=== PATIENT | male | born 1970 | race Caucasian/White ===

== ENCOUNTER 2017-08-12 18:42 | Inpatient (IN) | payer BC ==
[~2017-08-12] VITALS: Ht 188 cm; Wt 96.2 kg
[~2017-08-12 18:42] MED LIST: NAPROSYN500 MG PO; NORCO 7.5/321 TABLET PO
[2017-08-12 19:34] LABS: CHLORIDE 100 mEq/L (99-109); POTASSIUM 4.1 mEq/L (3.7-5.4); SODIUM 135 mEq/L (136-147)
[2017-08-12 19:36] LABS: GLUCOSE 132 mg/dL (70-99)
[2017-08-12 19:37] LABS: ANION GAP 11 MEQ/L (2-14)
[2017-08-12 19:38] LABS: TOTAL BILIRUBIN 0.7 mg/dL (0.0-1.0)
[2017-08-12 19:39] LABS: ALKALINE PHOSPHATASE 107 IU/L (3-129)
[2017-08-12 19:40] LABS: GFR ESTIMATE (CALCULATED) > 59 mL/min/
[2017-08-12 19:41] LABS: UREA NITROGEN (BUN) 13 mg/dL (9-23)
[2017-08-12 19:43] LABS: LIPASE 454 U/L (1.0-51.0)
[2017-08-12] MEDS ORDERED: GLIMEPIRIDE4 MG PO (21:57)
[2017-08-12] MEDS ORDERED: ATORVASTATIN CA20 MG PO (21:58)
[2017-08-12] MEDS ORDERED: LO-DOSE ASPIRIN81 M2 PO (21:58)
[2017-08-12] MEDS ORDERED: METFORMIN HCL500 M1 PO (21:58)
[2017-08-12 22:51] LABS: BASOPHIL COUNT 0.1 K/uL (0-0.1); EOSINOPHIL (%) 2.6 % (0-5); EOSINOPHIL COUNT 0.4 K/uL (0-0.3); HEMATOCRIT 48.5 % (38.0-50.0); IMMATURE GRANULOCYTE (%) 0.6 % (0.0-0.7); IMMATURE GRANULOCYTE COUNT 0.1 K/uL; INSTRUMENT ABS NEUTROPHIL CT 9.7 K/uL; LYMPHOCYTE COUNT 3.8 K/uL (1.0-2.8); MCH 30.1 PG (29.0-34.0); MCHC 33.4 G/DL (30.0-36.0); MEAN PLAT.VOLUME 9.3 uM^3 (9.0-12.4); MONOCYTE (%) 7.1 % (3-12); MONOCYTE COUNT 1.1 K/uL (0-0.8); NEUTROPHIL (%) 64.4 % (45-76); NEUTROPHIL COUNT 9.7 K/uL (1.8-6.4); PLATELET COUNT 259 K/uL (156-360); RBC DIS.WIDTH-CV 12.5 % (11.8-14.6); RBC DIS.WIDTH-SD 41.5 % (39-53); RED BLOOD COUNT 5.39 M/uL (4.00-5.50); WHITE BLOOD COUNT 15.1 K/uL (4.1-10.2)
[2017-08-12 23:20] LABS: C-REACTIVE PROTEIN 25.2 MG/L (0-10); TRIGLYCERIDES 186 MG/DL (Normal: <150)
[2017-08-13 00:52] VITALS: BP 119/71
[2017-08-13 06:12] LABS: BASOPHIL COUNT 0.1 K/uL (0-0.1); EOSINOPHIL COUNT 0.4 K/uL (0-0.3); HEMATOCRIT 47.2 % (38.0-50.0); IMMATURE GRANULOCYTE (%) 0.6 % (0.0-0.7); IMMATURE GRANULOCYTE COUNT 0.1 K/uL; INSTRUMENT ABS NEUTROPHIL CT 8.6 K/uL; LYMPHOCYTE COUNT 3.2 K/uL (1.0-2.8); MCH 29.6 PG (29.0-34.0); MCHC 32.6 G/DL (30.0-36.0); MCV 90.6 FL (86-99); MONOCYTE (%) 6.3 % (3-12); MONOCYTE COUNT 0.8 K/uL (0-0.8); NEUTROPHIL (%) 65.2 % (45-76); NEUTROPHIL COUNT 8.6 K/uL (1.8-6.4); PLATELET COUNT 234 K/uL (156-360); RBC DIS.WIDTH-CV 12.5 % (11.8-14.6); RBC DIS.WIDTH-SD 41.5 % (39-53); RED BLOOD COUNT 5.21 M/uL (4.00-5.50); WHITE BLOOD COUNT 13.1 K/uL (4.1-10.2)
[2017-08-13 06:34] LABS: ALKALINE PHOSPHATASE 91 IU/L (3-129); ANION GAP 5 MEQ/L (2-14); CHLORIDE 102 MEQ/L (99-109); GFR ESTIMATE (CALCULATED) > 59 mL/min/; GLUCOSE 152 mg/dL (70-99); POTASSIUM 4.5 MEQ/L (3.7-5.4); SAMPLE HEMOLYSIS CHECK 0; SAMPLE ICTERIC CHECK 0; SAMPLE LIPEMIA CHECK 0; SODIUM 135 MEQ/L (136-147); TOTAL BILIRUBIN 0.7 MG/DL (0.0-1.0); UREA NITROGEN (BUN) 11 mg/dL (9-23)
[2017-08-13 07:57] VITALS: BP 111/60
[2017-08-13 10:37] LABS: POINT-OF-CARE METER ID UU13113725
[2017-08-13 15:31] LABS: POINT-OF-CARE METER ID UU13113725
[2017-08-13 16:48] VITALS: BP 110/55
[2017-08-14 00:23] VITALS: BP 123/70
[2017-08-14 06:59] LABS: GFR ESTIMATE (CALCULATED) > 59 mL/min/; UREA NITROGEN (BUN) 12 mg/dL (9-23)
[2017-08-14 07:34] LABS: HEMATOCRIT 43.4 % (38.0-50.0); MCH 30.4 PG (29.0-34.0); MCHC 33.6 G/DL (30.0-36.0); MCV 90.2 FL (86-99); MEAN PLAT.VOLUME 9.1 uM^3 (9.0-12.4); PLATELET COUNT 215 K/uL (156-360); RBC DIS.WIDTH-CV 12.3 % (11.8-14.6); RBC DIS.WIDTH-SD 41.1 % (39-53); RED BLOOD COUNT 4.81 M/uL (4.00-5.50); WHITE BLOOD COUNT 10.2 K/uL (4.1-10.2)
[2017-08-14 07:42] LABS: ANION GAP 8 MEQ/L (2-14); CHLORIDE 105 MEQ/L (99-109); POTASSIUM 4.3 MEQ/L (3.7-5.4); SODIUM 141 MEQ/L (136-147)
[2017-08-14 07:47] LABS: GLUCOSE 134 mg/dL (70-99); LIPASE 131 U/L (1.0-51.0)
== END 2017-08-14 10:10 | disposition home or self-care (01) | DRG 440 ==
LOC: EME 18:42 → ENRESERV 22:18 → EDOF 22:18 → ENRESERV 22:33 → 5EAST 08-13 00:19
PROVIDERS: Hospitalist; Internal Medicine; Physician Assistant
DX: K85.10 Biliary acute pancreatitis without necrosis or infection (principal); E11.9 Type 2 diabetes mellitus without complications; E78.5 Hyperlipidemia, unspecified; K76.0 Fatty (change of) liver, not elsewhere classified; R16.0 Hepatomegaly, not elsewhere classified; F17.210 Nicotine dependence, cigarettes, uncomplicated; Z79.84 Long term (current) use of oral hypoglycemic drugs; Z83.3 Family history of diabetes mellitus
CPT/HCPCS: 74177; 76705; 80048; 80053; 82565; 82948; 83690; 84478; 84520; 85025; 85027; 86140; 99281; 99285; J1170; J1650; J1885; J2270; J2405; J7040; J7120

== ENCOUNTER → 2017-08-19 | Outpatient (CLI) | payer BC ==
[~2017-08-19] MED LIST changes: +ATORVASTATIN CA20 MG PO; +GLIMEPIRIDE4 MG PO; +LO-DOSE ASPIRIN81 M2 PO; +METFORMIN HCL500 M1 PO
== END | disposition home or self-care (01) ==
LOC: CDC 15:36
DX: Z01.810 Encounter for preprocedural cardiovascular examination (principal); K80.20 Calculus of gallbladder without cholecystitis without obstruction; E11.9 Type 2 diabetes mellitus without complications
CPT/HCPCS: 93000

== ENCOUNTER 2017-08-30 11:10 | Day surgery (SDC) | payer BC ==
[~2017-08-30] VITALS: Ht 188 cm; Wt 96.2 kg
[~2017-08-30 11:10] MED LIST changes: +AMARYL4 MG PO; +GLUCOPHAGE XR,500 MG PO; +LIPITOR20 MG PO; +LO-DOSE ASPIRIN81 M1 PO
[2017-08-30 11:52] VITALS: BP 114/67
[2017-08-30 12:56] LABS: POINT-OF-CARE METER ID UU14174212
[2017-08-30] MEDS ORDERED: PERCOCET 5/31 TABLET PO (13:44)
[2017-08-30 14:33] LABS: POINT-OF-CARE METER ID UU13113675
[2017-08-30 15:32] VITALS: BP 119/70
[2017-08-30 16:47] VITALS: BP 115/71
[2017-08-30 17:36] VITALS: BP 122/74
== END 2017-08-30 18:13 | disposition home or self-care (01) ==
LOC: SDC 11:10
PROVIDERS: Surgery
PROC: 0FT44ZZ Resection of Gallbladder, Percutaneous Endoscopic Approach (ICD-10-PCS; principal; 2017-08-30)
DX: K80.10 Calculus of gallbladder with chronic cholecystitis without obstruction (principal); K76.0 Fatty (change of) liver, not elsewhere classified; R59.0 Localized enlarged lymph nodes; J84.10 Pulmonary fibrosis, unspecified; I70.0 Atherosclerosis of aorta; E11.65 Type 2 diabetes mellitus with hyperglycemia; R94.31 Abnormal electrocardiogram [ECG] [EKG]; F17.210 Nicotine dependence, cigarettes, uncomplicated; Z79.84 Long term (current) use of oral hypoglycemic drugs; Z79.82 Long term (current) use of aspirin
CPT/HCPCS: 82948; 88304; J1100; J1170; J1885; J2250; J2270; J2405; J2710; J3010